=== PATIENT | female | born 1975 | race Caucasian/White ===

== ENCOUNTER 2018-11-09 19:41 | Observation (INO) ==
[2018-11-09 20:16] LABS: Microscopic, Urine URINE MICROSCOPIC (MICROSCOPIC)
[2018-11-09 20:25] LABS: Basophils # 0.1 K/mm3 (0-0.2); Basophils % 0.6 % (0.1-2.0); Eosinophils # 0.4 K/mm3 (0.0-0.4); Eosinophils % 3.9 % (0.1-12.0); Hematocrit 43.4 % (37.0-47.0); Lymphocytes # 3.6 K/mm3 (0.7-4.5); Lymphocytes % 33.9 % (10-50); Mean Corpuscular HGB Conc 32.2 g/dL (31.8-35.4); Mean Corpuscular Hemoglobin 28.7 pg (27.0-31.2); Mean Corpuscular Volume 89.2 fl (81-99); Mean Platelet Volume 7.2 fl (7.4-10.4); Monocytes # 0.5 K/mm3 (0.1-1.0); Monocytes % 5.1 % (1.7-9.3); Neutrophils % 56.4 % (37.0-80.0); Platelet Count 275 K/mm3 (142-424); Red Blood Count 4.86 M/mm3 (4.20-5.40); Red Cell Distribution Width 13.1 % (11.5-17.5); White Blood Count 10.6 K/mm3 (4.8-10.8)
[2018-11-09 20:27] LABS: Appearance,Urine CLEAR (Clear); Bilirubin,Urine Negative (Negative); Blood, Urine Negative (Negative); Color,Urine YELLOW (Yellow); Glucose,Urine (UA) Negative (Negative); Ketones,Urine Negative (Negative); Leukocyte Esterase,Urine Negative (Negative); Protein,Urine Negative (Negative); Specific Gravity, Urine <= 1.005 (1.005-1.030); Urobilinogen,Urine 0.2 EU/dl (0.2)
[2018-11-09 20:33] LABS: Bacteria,Urine Trace /lpf; WBC,Urine Occasional #/hpf (0-3)
[2018-11-09 20:34] LABS: Albumin Level 3.7 gm/dL (3.4-5.0); Albumin/Globulin Ratio 1.1 (1.1-1.8); Anion Gap 12.3 mEq/L (5-15); Bilirubin,Total 1.2 mg/dL (0.2-1.0); C-Reactive Protein 0.3 mg/L (0.0-0.9); Calcium 8.5 mg/dL (8.5-10.1); Globulin 3.4 gm/dl (1.3-3.2); Potassium 3.3 mmoL/L (3.5-5.1); Total Protein,Serum 7.1 gm/dL (6.4-8.2)
[2018-11-09 21:02] LABS: Erythrocyte Sedimentation Rate 14 mm/hr (0-20)
--- NOTE | 2018-11-09 21:57 | Emergency Department Note ---
ED Disposition Clinical Impression: Cholecystitis Disposition: Admitted as Observation Condition on Discharge: Good Instructions: DI for Acute Abdomen Referrals: Meseret Martinez MD [Primary Care Provider] - - Critical Care Critical Care Time: No Attestation: On 11/09/18, the high probability of a clinically significant, sudden or life threatening deterioration of the following system(s) required my full and direct attention, intervention and personal management. The time I documented below is in addition to time spent performing reported procedures but includes the f ollowing listed in this critical care notation. Medical Decision Making - Medical Records Medical records reviewed: Yes: I reviewed the patient's medical records. - Eduar Inquiry Pt receiving controlled substance: No Vital Signs: 11/09/18 19:49 11/09/18 20:18 11/09/18 21:17 Temperature 98.6 F 98.3 F Temperature Source Oral Oral Pulse Rate [Right Brachial] 97 H 80 87 Respiratory Rate 15 20 18 Blood Pressure [Right Arm] 111/76 102/56 L 104/59 L Blood Pressure Mean [Right Arm] 87 71 74 Blood Pressure Source [Right Arm] Automatic Cuff Automatic Cuff Blood Pressure Position [Right Arm] Supine Supine 02 Sat by Pulse Oximetry 96 94 L 95 Oxygen Delivery Method Room Air Room Air Room Air 11/09/18 21:47 11/09/18 22:13 Temperature Temperature Source Pulse Rate [Right Brachial] 81 82 Respiratory Rate 18 18 Blood Pressure [Right Arm] 99/58 L 105/63 L Blood Pressure Mean [Right Arm] 71 77 Blood Pressure Source [Right Arm] Automatic Cuff Automatic Cuff Blood Pressure Position [Right Arm] Supine Supine 02 Sat by Pulse Oximetry 95 95 Oxygen Delivery Method Room Air Room Air - Lab Data Lab results reviewed: Yes: I reviewed the patient's lab results. Lab Results 11/09/18 20:13: WBC 10.6, RBC 4.86, Hgb 14.0, Hct 43.4, MCV 89.2, MCH 28.7, MCHC 32.2, RDW 13.1, Plt Count 275, MPV 7.2 L, Neut % (Auto) 56.4, Lymph % (Auto) 33.9, [place] % (Auto) 5.1, Eos % (Auto) 3.9, Baso % (Auto) 0.6, Neut # (Auto) 6.0, Lymph # (Auto) 3.6, [place] # (Auto) 0.5, Eos # (Auto) 0.4, Baso # (Auto) 0.1, ESR 14 11/09/18 20:13: Sodium 144, Potassium 3.3 L, Chloride 107, Carbon Dioxide 28, Anion Gap 12.3, BUN 10, Creatinine 0.75, Estimated Creat Clear 133, Estimated GFR 85, Est GFR ( Amer) 103, Glucose 101, Calcium 8.5, Total Bilirubin 1.2 H, AST 19, ALT 32, Alkaline Phosphatase 88, C-Reactive Protein 0.3, Total Protein 7.1, Albumin 3.7, Globulin 3.4 H, Albumin/Globulin Ratio 1.1, Amylase 91, Lipase 164 11/09/18 20:13: Urine Color Yellow, Urine Appearance Clear, Urine pH 6.0, Ur Specific [place] <= 1.005, Urine Protein Negative, Urine Glucose (UA) Negative, Urine Ketones Negative, Urine Blood Negative, Urine Nitrate Negative, Urine Bilirubin Negative, Urine Urobilinogen 0.2, Ur Leukocyte Esterase Negative, Urine WBC Occasional, Urine Bacteria Trace Result diagrams: 11/09/18 20:13 11/09/18 20:13 Orders (Tests/Meds): ED MEDICATIONS Generic Name Dose Route Start Last Admin Trade Name Freq PRN Reason Stop Dose Admin Sodium Chloride 1,000 mls @ 999 mls/hr 11/09/18 20:00 11/09/18 20:09 Sod Chlor 0.9% 1000ml Bag IV 11/09/18 21:00 999 mls/hr .Q1H1M OLIVIER Administration Sodium Chloride 1,000 mls @ 999 mls/hr 11/09/18 21:30 11/09/18 21:31 Sod Chlor 0.9% 1000ml Bag IV 11/09/18 22:30 999 mls/hr .Q1H1M OLIVIER Administration Discontinued Medications Generic Name Dose Route Start Last Admin Trade Name Freq PRN Reason Stop Dose Admin Ioversol 75 ml 11/09/18 21:53 11/09/18 21:54 Rad-Optiray 350 100ml Vial IV 11/09/18 21:54 75 ml ONCE ONE Administration Protocol Ketorolac Tromethamine 30 mg 11/09/18 19:56 11/09/18 20:09 Toradol 30mg/Ml Vial IV 06/13/19 19:57 30 mg ONCE ONE Administration Morphine Sulfate 4 mg 11/09/18 22:00 11/09/18 22:01 Morphine 4mg/Ml Syringe IV 11/09/18 22:01 4 mg ONCE ONE Administration Ondansetron HCl 4 mg 11/09/18 19:56 11/09/18 20:09 Zofran 4mg/2ml Vial IV 11/09/18 19:57 4 mg ONCE ONE Administration Ondansetron HCl 4 mg 11/09/18 22:00 11/09/18 22:01 Zofran 4mg/2ml Vial IV 11/09/18 22:01 4 mg ONCE ONE Administration Sodium Chloride 10 ml 11/09/18 21:53 11/09/18 21:54 Rad-Saline Flush 10ml Syringe IV 11/09/18 21:54 10 ml ONCE ONE Administration ORDERS Category Date Time Status CT abdomen pelvis w con Stat Cat Scan 11/09/18 19:55 Taken Diarrhea 23 Panel, PCR Stat Lab 11/09/18 19:54 Ordered - CT Data CT Scan: Abdomen, Pelvis Time Received: 22:[address] Reviewed: Yes: I have viewed the radiologist's interpretation Preliminary Findings: Abnormal (gb changes ) - Physician Consults Physician Consulted: breana Reason -: Admission Nausea/Vomiting/Diarrhea HPI - General Chief complaint: Abdominal Pain Stated complaint: Right side pain Time Seen by Provider: 11/09/18 21:46 Mode of Arrival: Ambulatory Source of Information: Patient, Medical Record ( ) Limitations: No Limitations Description of Symptoms (Recalled from ER Triage Doc. by RN): Pt here with right sided abd pain, states it has been going on for 2 weeks, and has progressively gotten worse. Today she has associated nausea, does c/o diarrhea after every m eal. No c/o fevers. - History of Present Illness HPI Narrative: progressive rt upper abd pain with no fever but has n/v and presents as pain has sig increased MD complaint: nausea, vomiting, abdominal pain Onset (ago): day(s) Associated Abdominal Pain: Yes Location of pain: RUQ Severity: moderate Associated symptoms: denies other symptoms - Related Data Home Medications Medication Instructions Recorded Confirmed No Known Home Medications 11/09/18 11/09/18 Allergies Allergy/AdvReac Type Severity Reaction Status Date / Time hydrocodone [HYDROCODONE] Allergy Mild NA-NAUSEA/V Verified 11/09/18 20:08 OMITING [facility] History - Hepatitis A Screen Drug use history?: No High risk sexual behaviors?: No History of sexually transmitted infection?: No Currently employed?: No Childcare worker?: No Do you have indoor plumbing?: Yes Do you have electricity?: Yes Attestation statement:: This patient has been screened for Hepatitis A risk factors. I have reviewed the patient's past medical history: Yes Medical History: Denies:: Cancer, Diabetes Mellitus Type 1, Diabetes Mellitus Type 2, MRSA Laterality Cases: Bilateral: Tonsillectomy Amputation: No - Social History Smoking Status: Current every day smoker # Packs/Day (cigarettes): 1 Alcohol Intake: never Occupational Status: employed Housing: house - Psychiatric History Expresses thoughts of harming self/others: None Suicide Plan Description: No Plan ROS Obtained: Yes All systems reviewed & no additional complaints - Constitutional Constitutional: Denies fever(s) - Eyes Eyes: Denies change in vision - ENT Ears, Nose, Mouth, and Throat: Denies sore throat - Cardiovascular Cardiovascular: Denies chest pain - Respiratory Respiratory: No cough - Gastrointestinal Gastrointestingal: Reports: as per HPI, abdominal pain, nausea, vomiting. Denies: diarrhea - Genitourinary Female Genitourinary: Denies hematuria - Musculoskeletal Musculoskeletal: Denies joint pain - Integumentary/Breasts Skin/Breast: Denies rash - Neurologic Neurologic: Denies seizure-like activity Physical Exam - General General appearance: alert - Head Head exam: normocephalic - Eye Eye exam: Present: PERRL, EOMI. Absent: scleral icterus - ENT ENT exam: Present: mucous membranes dry - Neck Neck exam: Present: trachea midline - Respiratory Respiratory exam: Absent: respiratory distress - Cardiovascular Cardiovascular exam: Present: regular rate. Absent: systolic murmur - Abdominal Exam Abdominal exam: Present: soft, tenderness Abdominal tenderness: Present: RUQ, moderate - Extremities Exam Extremities exam: Present: full ROM - Neurological Exam Neurological exam: Present: alert, oriented X3, CN II-XII intact - Psychiatric Psychiatric exam: Present: normal affect - Skin Skin exam: Absent: rash
[2018-11-10 05:56] LABS: Basophils # 0.1 K/mm3 (0-0.2); Basophils % 0.6 % (0.1-2.0); Eosinophils # 0.5 K/mm3 (0.0-0.4); Hematocrit 38.2 % (37.0-47.0); Lymphocytes # 3.3 K/mm3 (0.7-4.5); Lymphocytes % 36.7 % (10-50); Mean Corpuscular HGB Conc 31.6 g/dL (31.8-35.4); Mean Corpuscular Hemoglobin 28.8 pg (27.0-31.2); Mean Corpuscular Volume 91.1 fl (81-99); Mean Platelet Volume 7.4 fl (7.4-10.4); Monocytes # 0.6 K/mm3 (0.1-1.0); Monocytes % 6.4 % (1.7-9.3); Neutrophils # 4.6 K/mm3 (1.8-7.8); Neutrophils % 51.2 % (37.0-80.0); Platelet Count 224 K/mm3 (142-424); Red Cell Distribution Width 13.2 % (11.5-17.5); White Blood Count 9.1 K/mm3 (4.8-10.8)
[2018-11-10 06:09] LABS: Hemoglobin 12.2 g/dL (12.2-16.2)
[2018-11-10 06:11] LABS: Anion Gap 8.1 mEq/L (5-15); Potassium 4.1 mmoL/L (3.5-5.1)
[2018-11-10 06:19] LABS: Calcium 7.6 mg/dL (8.5-10.1)
--- NOTE | 2018-11-10 08:20 | History & Physical Report ---
*Admission Date: 11/09/18 *Chief complaint: abdominal pain *History of present illness: Ms. Christianson is a 43-year-old female who presented to the emergency room with right-sided abdominal pain that has been ongoing for 2 weeks and progressively gotten worse. She began having nausea and diarrhea with every meal a few months ago. She though she just had a pulled muscle. She denies any fever. She was evaluated in the emergency room and found to have cholecystitis on CT scan. She was admitted and surgery was consulted. A right upper quadrant ultrasound was ordered as well. [facility] History I have reviewed the patient's past medical history: Yes Medical History: Reports:: Cancer (cervical cancer twice), Migraine Denies:: Diabetes Mellitus Type 1, Diabetes Mellitus Type 2, MRSA *Have you ever received a pneumonia vaccine?: No *Have you received a flu vaccine this season?: No Laterality Cases: Right: Arthroscopy Shoulder, Bilateral: Tonsillectomy Other Surgeries: Yes: Appendectomy, Dilation and Curettage, Hysterectomy- Partial, Tubal Ligation, Other (ovarian cyst removal x 6) Amputation: No Fractures: No - *Social History Smoking Status: Current every day smoker # Packs/Day (cigarettes): 2 Alcohol Intake: current Alcohol Intake Frequency:: holidays/special occasions only *Occupational Status:: employed Housing: house Household Members: spouse *Travel in the last 8 weeks: None - Psychiatric History Expresses thoughts of harming self/others: None Suicide Plan Description: No Plan Family Hx:: Adopted Review of Systems - Constitutional Denies chills, Denies weakness - Eyes Denies blurry vision, Denies double vision - ENT Denies nasal congestion, Denies sore throat - *Cardiovascular Denies chest pain, Denies rapid, pounding, or irregular heartbeat - *Respiratory Denies cough, Denies shortness of breath - *Gastrointestinal Reports abdominal pain (RUQ), Reports loose stools, Reports nausea, Denies vomiting - *Genitourinary Denies difficulty urinating, Denies painful urination - *Musculoskeletal Denies joint pain - *Neurologic Denies headache(s), Denies seizure-like activity, Denies dizziness, Denies weakness Meds Home Medications Medication Instructions Recorded Confirmed Type No Known Home Medications 11/09/18 11/09/18 History Allergies Allergy/AdvReac Type Severity Reaction Status Date / Time hydrocodone [HYDROCODONE] Allergy Mild NA-NAUSEA/V Verified 11/09/18 23:25 OMITING Exam Vital signs and Labs for Last 24 Hours: Temp Pulse Resp BP Pulse Ox 98.5 F 73 15 102/58 L 96 11/10/18 07:23 11/10/18 07:23 11/10/18 07:23 11/10/18 07:23 11/10/18 07:23 Laboratory Results - last 24 hr 11/09/18 20:13: WBC 10.6, RBC 4.86, Hgb 14.0, Hct 43.4, MCV 89.2, MCH 28.7, MCHC 32.2, RDW 13.1, Plt Count 275, MPV 7.2 L, Neut % (Auto) 56.4, Lymph % (Auto) 33.9, [place] % (Auto) 5.1, Eos % (Auto) 3.9, Baso % (Auto) 0.6, Neut # (Auto) 6.0, Lymph # (Auto) 3.6, [place] # (Auto) 0.5, Eos # (Auto) 0.4, Baso # (Auto) 0.1, ESR 14 11/09/18 20:13: Sodium 144, Potassium 3.3 L, Chloride 107, Carbon Dioxide 28, Anion Gap 12.3, BUN 10, Creatinine 0.75, Estimated Creat Clear 133, Estimated GFR 85, Est GFR ( Amer) 103, Glucose 101, Calcium 8.5, Total Bilirubin 1.2 H, AST 19, ALT 32, Alkaline Phosphatase 88, C-Reactive Protein 0.3, Total Protein 7.1, Albumin 3.7, Globulin 3.4 H, Albumin/Globulin Ratio 1.1, Amylase 91, Lipase 164 11/09/18 20:13: Urine Color Yellow, Urine Appearance Clear, Urine pH 6.0, Ur Specific [place] <= 1.005, Urine Protein Negative, Urine Glucose (UA) Negative, Urine Ketones Negative, Urine Blood Negative, Urine Nitrate Negative, Urine Bilirubin Negative, Urine Urobilinogen 0.2, Ur Leukocyte Esterase Negative, Urine WBC Occasional, Urine Bacteria Trace 11/10/18 05:47: WBC 9.1, RBC 4.20, Hgb 12.2 D, Hct 38.2, MCV 91.1, MCH 28.8, MCHC 31.6 L, RDW 13.2, Plt Count 224, MPV 7.4, Neut % (Auto) 51.2, Lymph % (Auto) 36.7, [place] % (Auto) 6.4, Eos % (Auto) 5.0, Baso % (Auto) 0.6, Neut # (Auto) 4.6, Lymph # (Auto) 3.3, [place] # (Auto) 0.6, Eos # (Auto) 0.5 H, Baso # (Auto) 0.1 11/10/18 05:47: Sodium 145, Potassium 4.1 D, Chloride 114 H, Carbon Dioxide 27, Anion Gap 8.1, BUN 10, Creatinine 0.79, Estimated Creat Clear 130, Estimated GFR 80, Est GFR ( Amer) 97, Glucose 99, Calcium 7.6 L D I & O for Last 24 hours: Intake & Output 11/07/18 11/08/18 11/09/18 11/10/18 11:59 11:59 11:59 11:59 Intake Total 2545 / 2545 Output Total 600 / 600 Balance 1944 / 194 Weight 195 lb 4 oz - Constitutional no acute distress - *Routine HEENT Exam Head: Present: normocephalic Eye: Present: EOMI, PERRL ENT: Present: mucous membranes moist - *Routine Neck Exam Present: supple. Absent: lymphadenopathy - *Routine Respiratory Exam Present: CTA bilaterally - *Routine Cardiovascular Exam Present: RRR - *Routine Abdominal Exam Present: soft, normoactive bowel sounds, tenderness (in the RUQ ) - *Routine Extremities Exam Absent: cyanosis, clubbing, edema - *Routine Skin Exam Present: warm. Absent: rash - *Routine Neurological Exam Present: alert, oriented X3 H&P: Result - Impressions CT abdomen/pelvis 1. Possible cholelithiasis with contracted gallbladder. Ultrasound may be of further value. 2. 3 cm left ovarian cyst. 3. 5 mm right upper lobe nodule nonspecific. Consider 6 month follow-up Assessment and Plan (1) Cholecystitis Current visit: Yes Status: Acute Category: Medical Code(s): K81.9 - Cholecystitis, unspecified - Assessment and plan all Dx Assessment and Plan for all problems:: Patient just had a right upper quadrant ultrasound. Awaiting results. Dr. Aviles has been consulted and will likely perform a cholecystectomy today.
--- NOTE | 2018-11-10 08:38 | Consult Report ---
*Admission Date: 11/09/18 *Reason for consult:: Cholecystitis *History of present illness: This is a 43-year-old female who is seen in consultation from her primary care provider after presenting to the emergency department overnight with increasing right sided abdominal pain with associated nausea/vomiting. She has had increasing symptomatology over the past few weeks and states that her symptoms are "worse with food intake". Please see HPI from an emergency department evaluation forwarded below. Nausea/Vomiting/Diarrhea HPI - General Chief complaint: Abdominal Pain Stated complaint: Right side pain Time Seen by Provider: 11/09/18 21:46 Mode of Arrival: Ambulatory Source of Information: Patient, Medical Record ( ) Limitations: No Limitations Description of Symptoms (Recalled from ER Triage Doc. by RN): Pt here with right sided abd pain, states it has been going on for 2 weeks, and has progressively gotten worse. Today she has associated nausea, does c/o diarrhea after every meal. No c/o fevers. - History of Present Illness HPI Narrative: progressive rt upper abd pain with no fever but has n/v and presents as pain has sig increased MD complaint: nausea, vomiting, abdominal pain Onset (ago): day(s) Associated Abdominal Pain: Yes Location of pain: RUQ Severity: moderate Associated symptoms: denies other symptoms Review of Systems - Constitutional Denies chills - Eyes Denies change in vision - ENT Denies difficulty swallowing - *Cardiovascular Denies chest pain - *Respiratory Denies cough - *Gastrointestinal Reports abdominal pain, Reports loose stools, Reports nausea, Reports vomiting - *Genitourinary Denies abnormal vaginal bleeding - *Musculoskeletal Denies abnormal walking - Integumentary/Breasts Denies bleeding lesions - *Neurologic Denies abnormal movements, Denies seizure-like activity - Psychiatric Denies anxiety - Endocrine Denies cold intolerance - Hematologic/Lymphatic Denies easy bleeding - Allergic/Immunologic Denies hives [facility] History Medical History: Reports:: Cancer (cervical cancer twice) Denies:: Diabetes Mellitus Type 1, Diabetes Mellitus Type 2, MRSA *Have you ever received a pneumonia vaccine?: No *Have you received a flu vaccine this season?: No Laterality Cases: Right: Arthroscopy Shoulder, Bilateral: Tonsillectomy Other Surgeries: Yes: Appendectomy, Hysterectomy-Partial Amputation: No Fractures: No - *Social History Smoking Status: Current every day smoker # Packs/Day (cigarettes): 2 Alcohol Intake: current Alcohol Intake Frequency:: holidays/special occasions only *Occupational Status:: employed Housing: house Household Members: spouse *Travel in the last 8 weeks: None - Psychiatric History Expresses thoughts of harming self/others: None Suicide Plan Description: No Plan Family Hx:: Adopted Meds Home Medications Medication Instructions Recorded Confirmed Type No Known Home Medications 11/09/18 11/09/18 History Allergies Allergy/AdvReac Type Severity Reaction Status Date / Time hydrocodone [HYDROCODONE] Allergy Mild NA-NAUSEA/V Verified 11/09/18 23:25 OMITING Exam Vital signs and Labs for Last 24 Hours: Temp Pulse Resp BP Pulse Ox 98.5 F 73 15 102/58 L 96 11/10/18 07:23 11/10/18 07:23 11/10/18 07:23 11/10/18 07:23 11/10/18 07:23 Laboratory Results - last 24 hr 11/09/18 20:13: WBC 10.6, RBC 4.86, Hgb 14.0, Hct 43.4, MCV 89.2, MCH 28.7, MCHC 32.2, RDW 13.1, Plt Count 275, MPV 7.2 L, Neut % (Auto) 56.4, Lymph % (Auto) 33.9, [place] % (Auto) 5.1, Eos % (Auto) 3.9, Baso % (Auto) 0.6, Neut # (Auto) 6.0, Lymph # (Auto) 3.6, [place] # (Auto) 0.5, Eos # (Auto) 0.4, Baso # (Auto) 0.1, ESR 14 11/09/18 20:13: Sodium 144, Potassium 3.3 L, Chloride 107, Carbon Dioxide 28, Anion Gap 12.3, BUN 10, Creatinine 0.75, Estimated Creat Clear 133, Estimated GFR 85, Est GFR ( Amer) 103, Glucose 101, Calcium 8.5, Total Bilirubin 1.2 H, AST 19, ALT 32, Alkaline Phosphatase 88, C-Reactive Protein 0.3, Total Protein 7.1, Albumin 3.7, Globulin 3.4 H, Albumin/Globulin Ratio 1.1, Amylase 91, Lipase 164 11/09/18 20:13: Urine Color Yellow, Urine Appearance Clear, Urine pH 6.0, Ur Specific [place] <= 1.005, Urine Protein Negative, Urine Glucose (UA) Negative, Urine Ketones Negative, Urine Blood Negative, Urine Nitrate Negative, Urine Bilirubin Negative, Urine Urobilinogen 0.2, Ur Leukocyte Esterase Negative, Urine WBC Occasional, Urine Bacteria Trace 11/10/18 05:47: WBC 9.1, RBC 4.20, Hgb 12.2 D, Hct 38.2, MCV 91.1, MCH 28.8, MCHC 31.6 L, RDW 13.2, Plt Count 224, MPV 7.4, Neut % (Auto) 51.2, Lymph % (Auto) 36.7, [place] % (Auto) 6.4, Eos % (Auto) 5.0, Baso % (Auto) 0.6, Neut # (Auto) 4.6, Lymph # (Auto) 3.3, [place] # (Auto) 0.6, Eos # (Auto) 0.5 H, Baso # (Auto) 0.1 11/10/18 05:47: Sodium 145, Potassium 4.1 D, Chloride 114 H, Carbon Dioxide 27, Anion Gap 8.1, BUN 10, Creatinine 0.79, Estimated Creat Clear 130, Estimated GFR 80, Est GFR ( Amer) 97, Glucose 99, Calcium 7.6 L D I & O for Last 24 hours: Intake & Output 11/07/18 11/08/18 11/09/18 11/10/18 11:59 11:59 11:59 11:59 Intake Total 2545 / 2545 Output Total 600 / 600 Balance 1944 / 1944 Weight 195 lb 4 oz - Constitutional no acute distress - *Routine HEENT Exam Head: Present: normocephalic, atraumatic - *Routine Respiratory Exam Absent: respiratory distress - *Routine Cardiovascular Exam Present: RRR - *Routine Abdominal Exam Present: soft, tenderness - *Routine Skin Exam Present: intact - Routine Psychiatric Exam Present: normal affect Results - Labs 11/10/18 05:47 11/10/18 05:47 Laboratory Results - last 24 hr 11/09/18 20:13: WBC 10.6, RBC 4.86, Hgb 14.0, Hct 43.4, MCV 89.2, MCH 28.7, MCHC 32.2, RDW 13.1, Plt Count 275, MPV 7.2 L, Neut % (Auto) 56.4, Lymph % (Auto) 33.9, [place] % (Auto) 5.1, Eos % (Auto) 3.9, Baso % (Auto) 0.6, Neut # (Auto) 6.0, Lymph # (Auto) 3.6, [place] # (Auto) 0.5, Eos # (Auto) 0.4, Baso # (Auto) 0.1, ESR 14 11/09/18 20:13: Sodium 144, Potassium 3.3 L, Chloride 107, Carbon Dioxide 28, Anion Gap 12.3, BUN 10, Creatinine 0.75, Estimated Creat Clear 133, Estimated GFR 85, Est GFR ( Amer) 103, Glucose 101, Calcium 8.5, Total Bilirubin 1.2 H, AST 19, ALT 32, Alkaline Phosphatase 88, C-Reactive Protein 0.3, Total Protein 7.1, Albumin 3.7, Globulin 3.4 H, Albumin/Globulin Ratio 1.1, Amylase 91, Lipase 164 11/09/18 20:13: Urine Color Yellow, Urine Appearance Clear, Urine pH 6.0, Ur Specific [place] <= 1.005, Urine Protein Negative, Urine Glucose (UA) Negative, Urine Ketones Negative, Urine Blood Negative, Urine Nitrate Negative, Urine Bilirubin Negative, Urine Urobilinogen 0.2, Ur Leukocyte Esterase Negative, Urine WBC Occasional, Urine Bacteria Trace 11/10/18 05:47: WBC 9.1, RBC 4.20, Hgb 12.2 D, Hct 38.2, MCV 91.1, MCH 28.8, MCHC 31.6 L, RDW 13.2, Plt Count 224, MPV 7.4, Neut % (Auto) 51.2, Lymph % (Auto) 36.7, [place] % (Auto) 6.4, Eos % (Auto) 5.0, Baso % (Auto) 0.6, Neut # (Auto) 4.6, Lymph # (Auto) 3.3, [place] # (Auto) 0.6, Eos # (Auto) 0.5 H, Baso # (Auto) 0.1 11/10/18 05:47: Sodium 145, Potassium 4.1 D, Chloride 114 H, Carbon Dioxide 27, Anion Gap 8.1, BUN 10, Creatinine 0.79, Estimated Creat Clear 130, Estimated GFR 80, Est GFR ( Amer) 97, Glucose 99, Calcium 7.6 L D - Imaging CT scan - abdomen: report reviewed, image reviewed CT scan - pelvis: report reviewed, image reviewed US - abdomen: report reviewed, image reviewed Assessment and Plan (1) Cholecystitis Current visit: Yes Status: Acute Category: Medical Code(s): K81.9 - Cholecystitis, unspecified She is scheduled for laparoscopic cholecystectomy this morning. I have discussed the risks and benefits including, but not limited to: Bleeding Infection Damage to surrounding tissue Inherent risks of sedation The patient agrees to proceed.
--- NOTE | 2018-11-10 09:20 | Pharmacy Consult Notes ---
[facility] Pharmacy VTE Monitoring - Patient Demographics Admission date: 11/09/18 Report Date: 11/10/18 Time: 09:20 Allergies/Adverse Reactions: Patient Allergies hydrocodone [HYDROCODONE] Allergy (Mild, Verified 11/09/18 23:25) NA-NAUSEA/VOMITING Height: 1.73 m Weight: 88.564 kg Patient Problems: Current Active Problems (Updated 11/09/18 @ 22:29 by Luis Gaona MD) Cholecystitis (Acute) - VTE Risk Labs: VTE Related Lab Results Hgb 12.2 g/dL (12.2-16.2) D 11/10/18 05:47 Hct 38.2 % (37.0-47.0) 11/10/18 05:47 Plt Count 224 K/mm3 (142-424) 11/10/18 05:47 BUN 10 mg/dL (7-18) 11/10/18 05:47 Creatinine 0.79 mg/dL (0.55-1.02) 11/10/18 05:47 Estimated Creat Clear 130 mL/min (50-200) 11/10/18 05:47 Was VTE Risk Assessment Performed: Yes VTE Score: 3 VTE Risk Level: Low Risk - Prophylaxis VTE Prophylaxis Ordered?: Yes Types of VTE Prophylaxis: TEDS Knee High Location of Applied Device: Bilateral Lower Extremeties - VTE Diagnosis Confirmed Treatment or plan recommended: Continue Current Treatment
--- NOTE | 2018-11-10 11:07 | Operative Note ---
Date of procedure: 11/10/18 Pre-op Diagnosis:: Acute cholecystitis Post-op Diagnosis:: Same Procedure performed:: Laparoscopic cholecystectomy Surgeon:: Phan Aviles MD MERCHANDISING MANAGER:: Enrique Major Anesthesia: GETA Estimated blood loss (mL): 10 Operative findings:: Significant pericholecystic fat stranding Distention of gallbladder with wall thickening Thickening of tissue around infundibulum with changes consistent with acute inflammation Operative note:: After informed consent was obtained, the patient was taken to the operating room and placed in the supine position. General anesthesia was induced and the abdomen was prepped and draped in a sterile fashion. After infiltration with local anesthetic an infraumbilical incision was made. A Veress needle was placed in position. The abdomen was insufflated. A 5 mm optical trocar was placed in position. Under direct visualization, a 12 mm trocar was placed in the subxiphoid position and 2 additional 5 mm trocars were placed in the right upper quadrant. The gallbladder was elevated up and over the liver margin. Significant fat stranding was noted. Careful dissection bluntly and with harmonic wandy was utilized to free this tissue as the gallbladder was more thoroughly elevated and maneuvered cephalad. The tissue around the cystic duct was carefully dissected. This tissue was very thickened and dissection was difficult. 3 clips were placed proximally and the duct was transected with harmonic wandy. The tissue around the cystic artery was carefully dissected and a clip was placed proximally. The duct was transected with harmonic wandy distally. Harmonic wandy were then utilized to dissect the gallbladder away from the liver margin. The gallbladder was placed in a retrieval bag and removed through the subxiphoid trocar site. The right upper quadrant was thoroughly irrigated. No active bleeding or bile leak was noted. Fascia at the subxiphoid trocar site was reapproximated utilizing 0 Ethibond. The remaining trocars were removed. All wounds were irrigated and skin was closed with 4-0 Monocryl in a subcuticular fashion. Steri-Strips were applied. The patient's anesthetic agents were reversed and extubation was completed prior to transfer to recovery in stable condition. Condition: stable Disposition: PACU Specimens:: Gallbladder and contents Complications:: No immediate
--- NOTE | 2018-11-10 11:08 | Progress Note ---
[facility] Anesthesia Checklist - Structural Data Admitted From: Inpatient Planned Operative Procedure/s: orquidea hernandez Consent for Planned Operative Procedure(s) Verified: Yes - Airway Assessment C-Spine Mobility Assessed: Yes TMJ Mobility Assessed: Yes Dentition: Good Dentition - Neurological Assessment Level of Consciousness: Awake, Alert, Appropriate - Anesthesia Plan Anesthesia Risk discussed: Yes Anesthesia Plan: Verified ASA Class: II Anesthesia Type: General [facility] History I have reviewed the patient's past medical history: Yes Medical History: Reports:: Cancer (cervical cancer twice), Migraine Denies:: Diabetes Mellitus Type 1, Diabetes Mellitus Type 2, MRSA *Have you ever received a pneumonia vaccine?: No *Have you received a flu vaccine this season?: No Laterality Cases: Right: Arthroscopy Shoulder, Bilateral: Tonsillectomy Other Surgeries: Yes: Appendectomy, Dilation and Curettage, Hysterectomy- Partial, Tubal Ligation, Other (ovarian cyst removal x 6) Amputation: No Fractures: No - *Social History Smoking Status: Current every day smoker # Packs/Day (cigarettes): 2 Alcohol Intake: current Alcohol Intake Frequency:: holidays/special occasions only *Occupational Status:: employed Housing: house Household Members: spouse *Travel in the last 8 weeks: None - Psychiatric History Expresses thoughts of harming self/others: None Suicide Plan Description: No Plan Family Hx:: Adopted
--- NOTE | 2018-11-10 11:09 | Progress Note ---
[facility] Anesthesia Record Part I Intake, IV Amount: 1,000 Estimated blood loss (mL): 0 Urine output (mL): 0 Blood Pressure: 129/55 SaO2: 100 Pulse Rate: 80 Respiratory Rate: 12 Temperature: 98 F Patient is:: Awake, Stable Stable to PACU at:: 11:05
--- NOTE | 2018-11-10 11:10 | Progress Note ---
[facility] Anesthesia Record Part II Discharge Time: 11:35 Destination: floor PACU nurse assessment reviewed?: Yes Patient Condition:: Good Anesthesia Complications:: None Swallowing reflex intact?: Yes Cyanosis?: No
--- NOTE | 2018-11-13 11:01 | Discharge Summary ---
General - General Admission date:: 11/09/18 Discharge date: 11/10/18 HPI HPI: Ms. Christianson is a 43-year-old female who presented to the emergency room with right-sided abdominal pain that has been ongoing for 2 weeks and progressively gotten worse. She began having nausea and diarrhea with every meal a few months ago. She though she just had a pulled muscle. She denies any fever. She was evaluated in the emergency room and found to have cholecystitis on CT scan. She was admitted and surgery was consulted. A right upper quadrant ultrasound was ordered as well. Hospital Course Hospital Course: The patient was started on pain medication and surgery was consulted. Her gallbladder ultrasound was normal despite her CT scan findings. Dr. Aviles felt she would need laparoscopic cholecystectomy based on her CT scan. He performed this on 11/10/2018 and found significant pericholecystic fat stranding and distention of the gallbladder with wall thickening. There was also thickening of the tissue around the infundibulum with changes consistent with acute inflammation. The patient tolerated the procedure well. She was able to tolerate a diet and was stable to be discharged home with close outpatient follow-up. Objective Vital signs: Temp Pulse Resp BP Pulse Ox 98.1 F 69 20 115/73 95 11/10/18 18:30 11/10/18 18:30 11/10/18 18:30 11/10/18 18:30 11/10/18 18:30 Narrative: - Constitutional no acute distress - *Routine HEENT Exam Head: Present: normocephalic Eye: Present: EOMI, PERRL ENT: Present: mucous membranes moist - *Routine Neck Exam Present: supple. Absent: lymphadenopathy - *Routine Respiratory Exam Present: CTA bilaterally - *Routine Cardiovascular Exam Present: RRR - *Routine Abdominal Exam Present: soft, normoactive bowel sounds, tenderness (in the RUQ ) - *Routine Extremities Exam Absent: cyanosis, clubbing, edema - *Routine Skin Exam Present: warm. Absent: rash - *Routine Neurological Exam Present: alert, oriented X3 DS: Diagnosis - Discharge Diagnosis (1) Cholecystitis Status: Acute (2) Status post laparoscopic cholecystectomy Status: Acute Discharge Plan - Patient Discharge Instructions ACTIVITY: Limited activity DIET: low fat, low cholesterol Additional Instructions: Please call and make a follow up appointment with Dr. Aviles for one week from today. Patient Instructions: DI for Cholecystectomy, DI for Surgical Site Infection, DI for Cholecystitis - Follow up Plan Follow up with: Phan Aviles MD [Staff Physician] - (1-2 weeks) Unknown provider or service follow up:: 11/10/18 18:18 [facility] in 2 weeks. Disposition: Home, Self-Halfway Medications: Home Medications Medication Instructions Recorded Confirmed Type Oxycodone HCl/Acetaminophen 1 tab PO Q6H PRN #23 tab 11/10/18 Rx [Percocet 5/325mg tablet] Prescriptions/Medication Reconciliation: New Oxycodone HCl/Acetaminophen [Percocet 5/325mg tablet] 1 tab PO Q6H PRN #23 tab PRN Reason: Moderate Pain
== END 2018-11-10 19:09 | disposition home or self-care (01) ==
LOC: ER 19:41 → 2ND 19:41
PROVIDERS: ADMIT Family Medicine; ATTEND Family Medicine
DX: Z85.41 Personal history of malignant neoplasm of cervix uteri; Z88.6 Allergy status to analgesic agent; K81.0 Acute cholecystitis
CPT/HCPCS: 36415; 74177; 76705; 80048; 80053; 81001; 82150; 83690; 85025; 85651; 86140; 96365; 96366; 96367; 96375; 96376; 99284; G0378; J1335; J2405; J2710; Q9967

== ENCOUNTER 2020-03-29 17:24 | Emergency (ER) | payer BC, SELFPAY ==
[2020-03-29 17:32] VITALS: BP 124/76; PULSE 80; RESP 18; TEMP 36.6; O2SAT 97; BMI 29.6
--- NOTE | 2020-03-29 17:37 | HMH.EDUTC ---
[facility] [place] Disposition Clinical Impression: URI (upper respiratory infection) Qualifiers: URI type: unspecified URI Qualified Code(s): J06.9 - Acute upper respiratory infection, unspecified Disposition: Home, Self-Care Condition on Discharge: Good Instructions: Sore Throat, DI for Sinusitis, Sinusitis, Azithromycin, Methylprednisolone Additional Instructions: *Monitor Temp, Over the counter Motrin or Tylenol as directed/as needed Tylenol every 4 hours and Motrin every 6 hours (as long as your family doctor has told you that you can take it) for fever or pain. and straight to ER if unable to lower temp less than 101.0 after medication given *Warm salt water gargles may help to soothe the throat *Throat Lozenges *Warm fluids like tea with honey may help to soothe the throat *Sleep elevated *Humidifier/Vaporizer *Flonase 2 sprays in each nostril daily but be aware that it may take 2-3 days before you notice improvement Your throat swab was sent for culture. Those results are typically sent to your primary care. Be sure to follow up in 2-3 days with your family doctor/primary care physician if no improvement so they can review those result and treat if necessary. If you don?t have a primary care doctor, I recommend you get one but in the mean time, you will have to return to a walk in clinic Follow up IMMEDIATELY for new or worsening symptoms or no Noticeable improvement over the next 48-72 hours. 911 for difficulty breathing or swallowing You was tested for today for COVID19 your test result should be back later this evening, you may call back later this evening to see if your test results are back and the result You was given a handout with instructions for Self Quarantine and Self isolation for while you wait on test results and what to do if they are positive Prescriptions: Fluticasone Propionate [Flonase 50mcg nasal spray 16gm] 1 spr NS DAILY #1 bottle Transmission Status: [facility] methylPREDNISolone [Medrol 4mg tab] 4 mg PO DIRECTED #21 tab Transmission Status: [facility] Azithromycin [Z-Musa 250mg Tab] 250 mg PO DIRECTED #6 tab Transmission Status: [facility] Referrals: Meseret Martinez MD [Primary Care Provider] - As needed Time of Disposition: 17:51 Medical Decision Making - Eduar Inquiry Pt receiving controlled substance: No Eduar was queried for this patient: No Vital Signs: 03/29/20 17:32 Temperature 97.9 F Temperature Source Oral Pulse Rate [Radial] 80 Respiratory Rate 18 Blood Pressure [Right Arm] 124/76 Blood Pressure Mean [Right Arm] 92 Blood Pressure Source [Right Arm] Automatic Cuff Blood Pressure Position [Right Arm] Sitting 02 Sat by Pulse Oximetry 97 Oxygen Delivery Method Room Air - Lab Data Lab results reviewed: Yes: I reviewed the patient's lab results. Orders (Tests/Meds): ORDERS Category Date Time Status Covid-19 Nasal PCR ([facility]) Routine Lab 03/29/20 17:31 Received [facility] HPI - General Stated complaint: Body aches, cough Time Seen by Provider: 03/29/20 17:37 Mode of Arrival: Ambulatory Source of Information: Patient Limitations: No Limitations Description of Symptoms (Recalled from Triage Doc. by RN): States she is weak, cough, diarrhea. Exposed to COVID last week. HEENT Symptoms (Recalled from RN notes): Yes Resp Symptoms (Recalled from RN notes): No Skin Symptoms (Recalled from RN notes): No MS Symptoms (Recalled from RN notes): No Functional Status (Recalled from RN notes): wnl - History of Present Illness Provider Complaint: Patient states that she was around someone that was positive for COVID last week States that now she is having sinus pain and congestion, sore throat body aches and chills States that she come in today to get checked to see if she had COVID or may have strep or flu - Related Data Previous Rx's Medication Instructions Recorded Albuterol Sulfate [Albuterol HFA
[2020-03-29 17:56] VITALS: BP 124/76; PULSE 80; RESP 18; TEMP 36.6; O2SAT 97
[2020-03-29 20:22] LABS: UTC Strep Screen (Rapid) Negative (Negative)
== END 2020-03-29 17:59 | disposition home or self-care (01) ==
PROVIDERS: Emergency Provider Nurse Practitioner; PCP Family Medicine
DX: J06.9 Acute upper respiratory infection, unspecified (principal); Z20.828 Contact with and (suspected) exposure to other viral communicable diseases; G43.709 Chronic migraine without aura, not intractable, without status migrainosus; F17.210 Nicotine dependence, cigarettes, uncomplicated
CPT/HCPCS: 87880; 99202; U0003

== ENCOUNTER 2020-12-26 16:00 | Outpatient (RCR) | payer OTHER, SELFPAY | END 2020-12-26 16:05 | disposition home or self-care (01) | LOC: PT 16:00 | PROVIDERS: Visit Provider Family Medicine | DX: M25.512 Pain in left shoulder (principal) | CPT/HCPCS: 97010; 97014; 97016; 97033; 97035; 97110; 97140; 97163; G0283 ==

== ENCOUNTER → 2021-02-25 14:40 | Outpatient (CLI) | payer BC, SELFPAY | PROVIDERS: PCP Family Medicine; Visit Provider Nurse Practitioner | DX: Z20.822 Contact with and (suspected) exposure to COVID-19 (principal) | CPT/HCPCS: C9803; U0003; U0005 ==

== ENCOUNTER → 2021-03-02 13:52 | Outpatient (CLI) | payer BC, SELFPAY | PROVIDERS: PCP Family Medicine; Visit Provider Nurse Practitioner | DX: Z20.822 Contact with and (suspected) exposure to COVID-19 (principal) | CPT/HCPCS: C9803; U0003; U0005 ==

== ENCOUNTER 2021-04-10 15:00 | Outpatient (RCR) | payer OTHER, SELFPAY | END 2021-04-10 15:05 | disposition home or self-care (01) | LOC: OT 15:00 | PROVIDERS: Visit Provider Orthopaedic Surgery | DX: M75.02 Adhesive capsulitis of left shoulder (principal) | CPT/HCPCS: 97014; 97035; 97110; 97140; 97164; 97165; 97530; G0283 ==

== ENCOUNTER → 2021-04-14 19:53 | Outpatient (CLI) | payer BC, SELFPAY | PROVIDERS: Visit Provider Nurse Practitioner Family | DX: Z20.822 Contact with and (suspected) exposure to COVID-19 (principal); J20.9 Acute bronchitis, unspecified; R05.9 Cough, unspecified; Z90.49 Acquired absence of other specified parts of digestive tract | CPT/HCPCS: C9803; U0003; U0005 ==

== ENCOUNTER 2021-05-30 19:12 | Emergency (ER) | payer BC, SELFPAY ==
[2021-05-30 20:00] VITALS: BP 122/77; PULSE 86; RESP 20; TEMP 36.8; O2SAT 97; BMI 29.6
--- NOTE | 2021-05-30 20:37 | HMH.EDUTC ---
[facility] [place] Disposition Clinical Impression: Acute bronchitis Qualifiers: Bronchitis organism: unspecified organism Qualified Code(s): J20.9 - Acute bronchitis, unspecified Disposition: Home, Self-Care Condition on Discharge: Good Instructions: Acute Bronchitis, DI for Acute Bronchitis Additional Instructions: Drink plenty of fluids. Take tylenol or ibuprofen for pain or fever. Take the medications as directed. Follow up with your regular doctor. GO TO THE ER FOR ANY WORSENING SYMPTOMS Quarantine until you know the results of your covid-19 test. If it is positive, the health department should call you and give you further instructions about your length of Quarantine and other things. Notify your school or workplace of your results and follow their instructions regarding return to work/school. Don't start the oral steroids until tomorrow, since you had the shot here today. The cough medication (promethazine dm) will make you drowsy, so don't drive or operate heavy machinery after taking it. Prescriptions: Albuterol Sulfate [Albuterol Sulfate Hfa] 2 puffs IH Q6HP PRN 30 Days #1 each PRN Reason: Shortness Of Breath Transmission Status: Received by [facility] Promethazine/Dextromethorphan [Promethazine-Dm Syrup] 5 ml PO Q6HP PRN #240 ml PRN Reason: Cough Transmission Status: Received by [facility] Amoxicillin/Potassium Clav [Augmentin 875-125 Tablet] 1 tab PO Q12H 10 Days #20 tab Transmission Status: Received by [facility] methylPREDNISolone [Medrol] 4 mg PO DIRECTED 6 Days #21 packet Transmission Status: Received by [facility] Referrals: Anil Zuñiga MD [Primary Care Provider] - Time of Disposition: 21:19 Medical Decision Making - Medical Records Medical records reviewed: No: I reviewed the patient's medical records. - Eduar Inquiry Pt receiving controlled substance: No Vital Signs: 05/30/21 20:00 05/30/21 20:55 Temperature 98.2 F 98.2 F Temperature Source Oral Pulse Rate 86 Pulse Rate [Left] 86 Respiratory Rate 20 20 Blood Pressure 122/77 Blood Pressure [Right Arm] 122/77 Blood Pressure Mean [Right Arm] 92 02 Sat by Pulse Oximetry 97 Orders (Tests/Meds): ED MEDICATIONS Discontinued Medications Generic Name Dose Route Start Last Admin Trade Name Jero PRN Reason Stop Dose Admin Ceftriaxone Sodium 1 gm 05/30/21 20:45 05/30/21 20:54 Ceftriaxone 1gm Vial IM 05/30/21 20:46 1 gm ONCE ONE Administration Lidocaine HCl 0 ml 05/30/21 20:45 05/30/21 20:54 Lidocaine 1% 5ml Pf Vial IM 05/30/21 20:46 2 ml ONCE ONE Administration Methylprednisolone Sodium Succinate 125 mg 05/30/21 20:45 05/30/21 20:54 Methylprednisolone Sod Succ 125mg Vial IM 05/30/21 20:46 125 mg ONCE ONE Administration ORDERS Category Date Time Status Covid-19 Nasal PCR ([facility]) Routine Lab 05/30/21 20:57 Received [facility] [place] HPI - General Stated complaint: congestion,cough Time Seen by Provider: 05/30/21 20:37 Mode of Arrival: Ambulatory Source of Information: Patient Limitations: No Limitations Description of Symptoms (Recalled from Triage Doc. by RN): pt c/o a cough, congestion, and SOA with ambulation. x5 days HEENT Symptoms (Recalled from RN notes): Yes Resp Symptoms (Recalled from RN notes): Yes Skin Symptoms (Recalled from RN notes): No MS Symptoms (Recalled from RN notes): No Functional Status (Recalled from RN notes): wnl - History of Present Illness Provider Complaint: For the past 5 days she has had chest congestion, productive cough with greenish sputum, fever up to 102, and wheezing. She denies any history of asthma or copd. - Related Data Previous Rx's Medication Instructions Recorded amoxicillin 500 mg capsule 500 mg PO Q12H 10 Days #20 cap 04/14/21 Albuterol Sulfate [Albuterol 2 puffs IH Q6HP PRN 30 Days #1 each 05/30/21 Sulfate Hfa] Amoxicillin/Potassium Clav 1 tab PO Q12H 10 Days #
[2021-05-30 20:55] VITALS: BP 122/77; PULSE 86; RESP 20; TEMP 36.8
== END 2021-05-30 21:25 | disposition home or self-care (01) ==
PROVIDERS: Emergency Provider Nurse Practitioner Family; PCP Family Medicine
DX: J20.9 Acute bronchitis, unspecified (principal); Z20.822 Contact with and (suspected) exposure to COVID-19
CPT/HCPCS: 96372; 99202; C9803; G0463; J0696; U0003; U0005

== ENCOUNTER 2022-01-29 15:36 | Emergency (ER) | payer BC, SELFPAY ==
[2022-01-29] VITALS (7 sets, daily range): BP systolic 108–130; BP diastolic 75–90; PULSE 74–81; RESP 16–18; TEMP 36.7–36.9; O2SAT 95–99; BMI 29.7
--- NOTE | 2022-01-29 17:05 | EXP.UTC ---
Discharge Plan Disposition Patient Disposition: Still a Patient Condition: Fair Prescriptions Prescriptions: No Action amoxicillin 500 mg capsule 500 mg PO Q12H 10 Days Qty: 20 0RF promethazine-DM 120 ML syrup 5 ml PO Q6HP PRN (Reason: Cough) Qty: 240 0RF methylprednisolone 4 MG tablets,dose pack 4 mg PO DIRECTED 6 Days Qty: 21 0RF albuterol sulfate 8.5 GM HFA aerosol inhaler 2 puffs IH Q6HP PRN (Reason: Shortness Of Breath) 30 Days Qty: 1 5RF amoxicillin-pot clavulanate 1 EACH tablet 1 tab PO Q12H 10 Days Qty: 20 0RF Referrals Follow up/Referrals: Anil Zuñiga MD [Primary Care Provider] - See instructions Clinical Impressions Clinical Impression: Chest pain Discharge ED Provider: Francisca Walker [facility] General Stated complaint: Pain under left breast X1 week ? pulled muscle Mode of Arrival: Ambulatory Source of Information: Patient Limitations: No Limitations Time Seen by Provider: 01/29/22 17:05 Description of Symptoms (Recalled from Triage Doc. 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 State that she felt like she had indigestion States that since then she has continued to have pain in the left side of her chest under her breast and it comes up beside left breast in her chest States that nothing she has done has made it better Denies injury Denies worsening of pain with movement States that it just hurts States that today she was still having pain and belching alot today so she came in to get checked out Related Data Previous Rx's Medication Instructions Recorded amoxicillin 500 mg capsule 500 mg PO Q12H strep 10 days #20 04/14/21 caps albuterol sulfate 90 mcg/actuation 2 puffs IH Q6HP PRN Shortness Of 05/30/21 aerosol inhaler Breath 30 days #1 ea amoxicillin 875 mg-potassium 1 tab PO Q12H 10 days #20 tabs 05/30/21 clavulanate 125 mg tablet methylprednisolone 4 mg tablets in 4 mg PO DIRECTED 6 days #21 05/30/21 a dose pack packets promethazine-DM 6.25 mg-15 mg/5 mL 5 ml PO Q6HP PRN Cough #240 mL 05/30/21 oral syrup Allergies Allergy/AdvReac Type Severity Reaction Status Date / Time hydrocodone [HYDROCODONE] Allergy Mild NA-NAUSEA/V Verified 04/14/21 13:25 OMITING Worker's Comp Is this a Worker's Comp case?: No PFSH PFSH Medical History (Updated 01/29/22 @ 17:19 by Francisca Walker APRN) Cancer Migraine Surgical History (Updated 01/29/22 @ 17:03 by Isabel Hassan RN) History of appendectomy History of cholecystectomy History of hysterectomy History of repair of rotator cuff History of tonsillectomy Social History (Updated 01/29/22 @ 17:04 by Isabel Hassan RN) Smoking Status: Current every day smoker tobacco type: cigarettes packs per day: 1 second hand exposure: Yes alcohol intake: never current occupational status: employed Travel in the last 8 weeks: None household members: spouse housing: house caffeine: Yes (2 pots a day) ROS Obtained: Yes All systems reviewed & no additional complaints except as documented and Yes Systems reviewed as appropriate & no additional complaints except as documented ENT Ears, Nose, Mouth, and Throat: Reports system reviewed and no additional complaints, except as documented and Reports as per HPI Cardiovascular Cardiovascular: Reports system reviewed and no additional complaints, except as documented, Reports as per HPI and Reports chest pain (Pain in left side of chest below left breast that has continued to get wors
--- NOTE | 2022-01-29 17:31 | ECG_ITS ---
APPROVED REPORT Exam: Resting ECG HR:75 bpm ECG Measurements Heart Rate 75 AXES SC 125 P 60 QRSd 77 QRS 22 QT 379 T 44 QTc 407 Conclusion SINUS RHYTHM NORMAL ECG UNCONFIRMED REPORT Electronically signed by : Beny Thayer MD 01/30/2022 16:25:04
--- NOTE | 2022-01-29 17:34 | XR_ITS ---
PROCEDURE INFORMATION: Exam: XR Chest Exam date and time: 01/29/22 05:33 PM Age: 46 years old Clinical indication: Dyspnea; Chest wall pain; Additional info: Cp x1 week TECHNIQUE: Imaging protocol: Radiologic exam of the chest. Views: 2 views. COMPARISON: CR XR CHEST PORTABLE 08/22/19 01:30 PM FINDINGS: Lungs: Unremarkable. No consolidation. Pleural spaces: Unremarkable. No pleural effusion. No pneumothorax. Heart/Mediastinum: Unremarkable. No cardiomegaly. Bones/joints: Unremarkable. IMPRESSION: No acute findings.
--- NOTE | 2022-01-29 17:44 | HMH.EDGENADL ---
Discharge Plan Disposition Patient Disposition: Home, Self-Care Condition: Fair Prescriptions Prescriptions: No Action amoxicillin 500 mg capsule 500 mg PO Q12H 10 Days Qty: 20 0RF promethazine-DM 120 ML syrup 5 ml PO Q6HP PRN (Reason: Cough) Qty: 240 0RF methylprednisolone 4 MG tablets,dose pack 4 mg PO DIRECTED 6 Days Qty: 21 0RF albuterol sulfate 8.5 GM HFA aerosol inhaler 2 puffs IH Q6HP PRN (Reason: Shortness Of Breath) 30 Days Qty: 1 5RF amoxicillin-pot clavulanate 1 EACH tablet 1 tab PO Q12H 10 Days Qty: 20 0RF Referrals Follow up/Referrals: Anil Zuñiga MD [Primary Care Provider] - See instructions Clinical Impressions Clinical Impression: Chest pain Instructions Patient Instructions: DI for Atypical Chest Pain Discharge ED Provider: Prashant Montes General Adult HPI <Prashant Montes MD - Last Filed: 01/29/22 20:00> General Chief complaint: Chest Pain Stated complaint: Pain under left breast X1 week ? pulled muscle Time Seen by Provider: 01/29/22 17:45 Mode of Arrival: Ambulatory Source of Information: Patient Limitations: No Limitations Description of Symptoms (Recalled from ER Triage Doc. by RN): Pt to ED from [facility] for further eval r/t CP x1 week. 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 Pt states that since then, she has had a constant pain that extends from under her left breast to the center of her chest. C/O increased pain with coughing/sneezing. States that it takes her a while to get up in the mornings because she is stiff and the pain is almost unbearable. History of Present Illness HPI narrative: Patient sent from the urgent treatment center. States that on Tuesday, 6 days ago, she developed pain in the center of her chest while at work. Since then she has had a pain that is under her left breast and up into her sternum. Pain is severe when she coughs or sneezes. Also hurts when she lays on either side. She is not short of breath, she has a mild pain with a deep breath. She has been taking Aleve for her symptoms. No recent cough or fever. States she feels like her left leg feels bigger than her right. No leg pain. No recent hospitalizations, surgeries, travel. She is not on oral contraceptive pills or hormone replacement therapy. She does not have any known cardiac or pulmonary conditions. She is a smoker. She does not have diabetes, hypertension, hyperlipidemia. Related Data Previous Rx's Medication Instructions Recorded amoxicillin 500 mg capsule 500 mg PO Q12H strep 10 days #20 04/14/21 caps albuterol sulfate 90 mcg/actuation 2 puffs IH Q6HP PRN Shortness Of 05/30/21 aerosol inhaler Breath 30 days #1 ea amoxicillin 875 mg-potassium 1 tab PO Q12H 10 days #20 tabs 05/30/21 clavulanate 125 mg tablet methylprednisolone 4 mg tablets in 4 mg PO DIRECTED 6 days #21 05/30/21 a dose pack packets promethazine-DM 6.25 mg-15 mg/5 mL 5 ml PO Q6HP PRN Cough #240 mL 05/30/21 oral syrup Allergies Allergy/AdvReac Type Severity Reaction Status Date / Time hydrocodone [HYDROCODONE] Allergy Mild NA-NAUSEA/V Verified 04/14/21 13:25 OMITING PFSH <Prashant Montes MD - Last Filed: 01/29/22 20:00> PFSH Medical History (Updated 01/29/22 @ 17:19 by Francisca Walker APRN) Cancer Migraine Surgical History (Updated 01/29/22 @ 17:03 by Isabel Hassan RN) History of appendectomy History of cholecystectomy History of hysterectomy History of repair of rotator cuff History of tonsillectomy Social History (Updated 01/29/22 @ 17:04 by Isabel Hassan RN) Smoking Status: Current every day smoker tobacco type: cigarettes packs per day: 1 second hand exposure: Yes alcohol intake: never current occupational status: employed Travel in the last 8 weeks: None household members: spouse housing: house caffeine: Yes (2 pots a day)
--- NOTE | 2022-01-29 17:45 | PC.NURSE ---
Pt back from Xray.
[2022-01-29 17:55] LABS: Chloride 107 mmol/L (98-107)
[2022-01-29 17:56] LABS: Potassium 3.7 mmoL/L (3.5-5.1); Sodium 144 mmol/L (136-145)
[2022-01-29 17:58] LABS: Blood Urea Nitrogen 9 mg/dl (7-17); Creatinine Clearance Estimated 166 mL/min (50-200); Estimated Glomerular Filt Rate 108 ml/min (>60); GFR (African American) 131 ML/MIN (>60)
[2022-01-29 17:59] LABS: Anion Gap 9.7 mEq/L (5-15); Calcium 9.2 mg/dl (8.4-10.2); Carbon Dioxide 31 mmol/L (22.0-30.0); Glucose 95 mg/dl (74-100)
[2022-01-29 18:14] LABS: Troponin I < 0.01 ng/ml (0.00-0.034)
[2022-01-29 18:18] LABS: Basophils # 0.2 K/mm3 (0-0.2); Basophils % 1.5 % (0.1-2.0); Eosinophils # 0.3 K/mm3 (0.0-0.4); Eosinophils % 2.8 % (0.1-12.0); Hemoglobin 14.8 g/dL (12.2-16.2); Lymphocytes # 2.9 K/mm3 (0.7-4.5); Lymphocytes % 26.2 % (10-50); Mean Corpuscular HGB Conc 30.8 g/dL (31.8-35.4); Mean Corpuscular Hemoglobin 29.5 pg (27.0-31.2); Mean Corpuscular Volume 95.8 fl (81-99); Mean Platelet Volume 7.8 fl (7.4-10.4); Monocytes # 0.5 K/mm3 (0.1-1.0); Monocytes % 4.3 % (1.7-9.3); Neutrophils # 7.1 K/mm3 (1.8-7.8); Neutrophils % 65.1 % (37.0-80.0); Platelet Count 291 K/mm3 (142-424); Red Blood Count 5.01 M/mm3 (4.20-5.40); Red Cell Distribution Width 13.4 % (11.5-17.5); White Blood Count 10.9 K/mm3 (4.8-10.8)
[2022-01-29 19:43] LABS: D-Dimer 0.73 ug/mL (0.0-0.5)
--- NOTE | 2022-01-29 19:51 | CT_ITS ---
PROCEDURE INFORMATION: Exam: CTA Chest With Contrast Exam date and time: 01/29/22 08:36 PM Age: 46 years old Clinical indication: Pain; Left-sided; Patient HX: D dimer elevated 0.73; Additional info: Chest pain, elev d-dimer TECHNIQUE: Imaging protocol: Computed tomographic angiography of the chest with contrast. 3D rendering (Not supervised by radiologist): MIP and/or 3D reconstructed images were created by the technologist. Radiation optimization: All CT scans at this facility use at least one of these dose optimization techniques: automated exposure control; mA and/or kV adjustment per patient size (includes targeted exams where dose is matched to clinical indication); or iterative reconstruction. Contrast material: ISOVUE 370; Contrast volume: 75 ml; Contrast route: INTRAVENOUS (IV); COMPARISON: CR Chest 01/29/22 05:33 PM FINDINGS: Pulmonary arteries: Normal. No pulmonary emboli. Aorta: Unremarkable. No aortic aneurysm. No aortic dissection. Lungs: Unremarkable. No consolidation. No masses. Pleural spaces: Unremarkable. No pneumothorax. No pleural effusion. Heart: Unremarkable. No cardiomegaly. No pericardial effusion. Lymph nodes: Unremarkable. No enlarged lymph nodes. Bones/joints: Unremarkable. No acute fracture. Soft tissues: Unremarkable. IMPRESSION: 1. No acute findings. 2. No CT evidence of pulmonary embolus.
--- NOTE | 2022-01-29 20:38 | PC.NURSE ---
pt gone to ct
[2022-01-29 22:20] LABS: Troponin I < 0.01 ng/ml (0.00-0.034)
== END 2022-01-29 21:52 | disposition home or self-care (01) ==
LOC: UTC 15:39 → ER 17:13
PROVIDERS: Emergency Provider Emergency Medicine; PCP Family Medicine
DX: R07.81 Pleurodynia (principal); R06.02 Shortness of breath; R05.9 Cough, unspecified; G43.909 Migraine, unspecified, not intractable, without status migrainosus; F17.210 Nicotine dependence, cigarettes, uncomplicated; Z79.51 Long term (current) use of inhaled steroids; Z79.52 Long term (current) use of systemic steroids; Z79.899 Other long term (current) drug therapy; Z85.9 Personal history of malignant neoplasm, unspecified
CPT/HCPCS: 71046; 71275; 80048; 84484; 85025; 85378; 93005; 96374; 99285; Q9967

== ENCOUNTER → 2022-03-16 14:06 | Outpatient (CLI) | payer BC, SELFPAY ==
--- NOTE | 2022-03-16 14:18 | XR_ITS ---
FINAL REPORT CLINICAL HISTORY: COVID OUT PATIENT, cough, smoker FINDINGS: A single portable view of the chest was obtained. The heart size and pulmonary vascularity are within normal limits. The mediastinum is within normal limits. There are mild left base opacities which may represent atelectasis or pneumonia. The bony thorax is intact. IMPRESSION: Mild left lung base atelectasis or pneumonia. Reviewed, Interpreted and Dictated by Aime Bryant III, MD Transcribed by Do Gordillo Authenticated and [facility]
[2022-03-16 15:46] LABS: Adenovirus,PCR Not Detected (NotDetected); Bordetella Pertussis Not Detected (NotDetected); Chlamydophila Pneumoniae, PCR Not Detected (NotDetected); Coronavirus 19, PCR Not Detected (NotDetected); Coronavirus 229E Not Detected (NotDetected); Coronavirus NL63 Not Detected (NotDetected); Coronavirus OC43 Not Detected (NotDetected); Coronovirus HKU1,PCR Not Detected (NotDetected); Human Metapneumovirus Not Detected (NotDetected); Influenza A, PCR Not Detected (NotDetected); Influenza AH1, 2009 Not Detected (NotDetected); Influenza AH1, PCR Not Detected (NotDetected); Influenza AH3,PCR Not Detected (NotDetected); Influenza B, PCR Not Detected (NotDetected); Mycoplasma Pneumoniae, PCR Not Detected (NotDetected); Parainfluenza 1, PCR Not Detected (NotDetected); Parainfluenza 2, PCR Not Detected (NotDetected); Parainfluenza 3, PCR Not Detected (NotDetected); Parainfluenza 4, PCR Not Detected (NotDetected); Rhinovirus/Enterovirus Not Detected (NotDetected)
[2022-03-16 16:11] LABS: Basophils # 0.2 K/mm3 (0-0.2); Basophils % 1.9 % (0.1-2.0); Eosinophils # 0.4 K/mm3 (0.0-0.4); Eosinophils % 4.6 % (0.1-12.0); Hematocrit 49.3 % (37.0-47.0); Hemoglobin 15.2 g/dL (12.2-16.2); Lymphocytes # 2.9 K/mm3 (0.7-4.5); Mean Corpuscular HGB Conc 30.7 g/dL (31.8-35.4); Mean Corpuscular Hemoglobin 28.8 pg (27.0-31.2); Mean Corpuscular Volume 93.7 fl (81-99); Monocytes # 0.6 K/mm3 (0.1-1.0); Monocytes % 7.2 % (1.7-9.3); Neutrophils # 4.4 K/mm3 (1.8-7.8); Neutrophils % 52.2 % (37.0-80.0); Platelet Count 298 K/mm3 (142-424); Red Blood Count 5.26 M/mm3 (4.20-5.40); Red Cell Distribution Width 13.4 % (11.5-17.5); White Blood Count 8.5 K/mm3 (4.8-10.8)
[2022-03-16 21:18] LABS: Respiratory Syncytial Virus Detected (NotDetected)
== END ==
PROVIDERS: PCP Family Medicine; Visit Provider Nurse Practitioner Family
DX: Z20.822 Contact with and (suspected) exposure to COVID-19 (principal); B97.4 Respiratory syncytial virus as the cause of diseases classified elsewhere
CPT/HCPCS: 36415; 71045; 85025; 87581; 87632; 87798; C9803; U0003; U0005

== ENCOUNTER 2022-06-01 16:03 | Emergency (ER) | payer BC, SELFPAY ==
[2022-06-01 17:06] VITALS: BP 130/79; PULSE 99; RESP 18; TEMP 37.1; O2SAT 98; BMI 29.7
--- NOTE | 2022-06-01 17:33 | EXP.UTC ---
Discharge Plan Disposition Patient Disposition: Home, Self-Care Condition: Good Prescriptions Prescriptions: New azithromycin [Zithromax Z-Musa] 250 mg tablet See Rx Instructions .ROUTE .COMPLEX 5 Days Qty: 6 0RF Rx Instructions: For 250 mg dose pack: take 500 mg today (day 1), then 250 mg for 4 days (days 2-5) prednisone [prednisone] 20 mg tablet 20 mg PO BID 5 Days Qty: 10 0RF benzonatate 100 mg capsule 100 mg PO TID PRN (Reason: cough) Qty: 30 0RF guaifenesin [Mucinex] 600 mg tablet extended release 12hr 600 mg PO BID PRN (Reason: cough) Qty: 20 0RF No Action albuterol sulfate 8.5 GM HFA aerosol inhaler 2 puffs IH Q6HP PRN (Reason: Shortness Of Breath) 30 Days Qty: 1 5RF Referrals Follow up/Referrals: Anil Zuñiga MD [Primary Care Provider] - See instructions Activity Restrictions/Add. Instructions Additional Instructions/Restrictions: Start antibiotic today. Be sure to complete entire prescription even if feeling better Monitor temp. Tylenol every 4 hours as needed and / or ibuprofen every 6 hours as needed ( As long as your primary care physician has told you that it ok to take both. For fever/aches/pains ER if no less than 101 despite Tylenol or Motrin Humidifier/vaporizer or hot steamy shower Inhaler every 4-6 hours as needed like we discussed. If unsure how to use it, ask pharmacist to demonstrate how. Should help open airways and improve cough, wheezing, and shortness of breath Mucinex for your cough and cough suppressant only at night. Be sure to drink lots of water. *Tessalon Perles will not cause drowsiness but use at bedtime to help stop cough so that you may get some rest. *Start steroid tomorrow. Helps with inflammation therefore, cough and wheezing. Follow directions on the package. Reviewed side effects. Patient reports taking them before. Follow up IMMEDIATELY for new or worsening of symptoms OR no noticeable improvement over the next 48-72 hours. 911 immediately for any life threatening symptoms such as chest pain or difficulty breathing Clinical Impressions Clinical Impression: Acute bronchitis Instructions Patient Instructions: Sinusitis, Acute Bronchitis, DI for Sinusitis Discharge ED Provider: Francisca Walker [facility] HPI General Stated complaint: Cough,Congestion,Fever Mode of Arrival: Ambulatory Source of Information: Patient Time Seen by Provider: 06/01/22 17:33 Description of Symptoms (Recalled from Triage Doc. by RN): cough, congestion. Had RSV a month ago and has not gotten better HEENT Symptoms (Recalled from RN notes): Yes Resp Symptoms (Recalled from RN notes): Yes Skin Symptoms (Recalled from RN notes): No MS Symptoms (Recalled from RN notes): No Functional Status (Recalled from RN notes): n/a History of Present Illness Provider Complaint: Patient states that she had RSV about a month ago and dont think she ever really kicked it States that she has been having cough, sinus congestion and pressure, and feels like it is trying to move into her chest States that today she was still not feeling well so she came in to get it checked out Related Data Previous Rx's Medication Instructions Recorded albuterol sulfate 90 mcg/actuation 2 puffs IH Q6HP PRN Shortness Of 05/30/21 aerosol inhaler Breath 30 days #1 ea azithromycin 250 mg tablet See Rx Instructions PO .COMPLEX 5 06/01/22 (Zithromax Z-Musa) days #6 tabs benzonatate 100 mg capsule 100 mg PO TID PRN cough #30 caps 06/01/22 guaifenesin 600 mg tablet, 600 mg PO BID PRN cough #20 tabs 06/01/22 extended release 12 hr (Mucinex) prednisone 20 mg tablet 20 mg PO BID 5 days #10 tabs 06/01/22 Allergies Allergy/AdvReac Type Severity Reaction Status Date / Time hydrocodone [HYDROCODONE] Allergy Mild NA-NAUSEA/V Verified 06/01/22 17:13 OMITING Worker's Comp Is this a Worker's Comp case?: No [facility] Disclaimer: The information c
[2022-06-01 18:47] VITALS: BP 130/79; PULSE 99; RESP 18; TEMP 37.1; O2SAT 98
== END 2022-06-01 18:40 | disposition home or self-care (01) ==
PROVIDERS: Emergency Provider Nurse Practitioner; PCP Family Medicine
DX: J20.9 Acute bronchitis, unspecified (principal)
CPT/HCPCS: 96372; 99212; 99213; G0463; J0696

== ENCOUNTER → 2022-08-18 15:39 | Outpatient (CLI) | payer BC, SELFPAY ==
--- NOTE | 2022-08-18 15:45 | XR_ITS ---
PROCEDURE INFORMATION: Exam: XR Left Foot Exam date and time: 08/18/2022 4:07 PM Age: 46 years old Clinical indication: Pain; Foot; Left; Additional info: Toe pain TECHNIQUE: Imaging protocol: Radiologic exam of the left foot. Views: 3 or more views. COMPARISON: No relevant prior studies available. FINDINGS: Bones/joints: Normal. Soft tissues: Normal. IMPRESSION: No acute findings.
--- NOTE | 2022-08-18 15:45 | XR_ITS ---
PROCEDURE INFORMATION: Exam: XR Right Foot Exam date and time: 08/18/2022 4:07 PM Age: 46 years old Clinical indication: Pain; Foot; Right; Additional info: Toe pain TECHNIQUE: Imaging protocol: Radiologic exam of the right foot. Views: 3 or more views. COMPARISON: No relevant prior studies available. FINDINGS: Bones/joints: Normal. Soft tissues: Normal. IMPRESSION: No acute findings.
== END ==
LOC: RAD 15:40
PROVIDERS: PCP Physician Assistant; Visit Provider Physician Assistant
DX: M79.674 Pain in right toe(s) (principal); M79.675 Pain in left toe(s)
CPT/HCPCS: 73630

== ENCOUNTER → 2022-08-23 14:14 | Outpatient (CLI) | payer BC, SELFPAY ==
--- NOTE | 2022-08-23 14:15 | US_ITS ---
FINAL REPORT CLINICAL HISTORY: PAD REYNAUDS DISEASE COLD DISCOLORED TOES FINDINGS: ANKLE-BRACHIAL PRESSURE INDICES Pressure indices are as follows: RIGHT LOWER EXTREMITY: Ankle-brachial pressure index: 1.02 Comments: Normal LEFT LOWER EXTREMITY: Ankle-brachial pressure index: 1.0 Comments: Normal IMPRESSION: No evidence of significant obstructive peripheral vascular disease of the lower extremities Reviewed, Interpreted and Dictated by Jne Martin MD Transcribed by Tatiana Jacob Authenticated and . [facility]
== END ==
LOC: RT 14:15
PROVIDERS: PCP Physician Assistant; Visit Provider Podiatrist
DX: I73.9 Peripheral vascular disease, unspecified (principal)
CPT/HCPCS: 93923

== ENCOUNTER → 2022-08-26 15:08 | Outpatient (CLI) | payer BC, SELFPAY ==
[2022-08-26 16:00] LABS: Erythrocyte Sedimentation Rate 6 mm/hr (0-20)
[2022-08-26 16:06] LABS: Basophils # 0.2 K/mm3 (0-0.2); Basophils % 1.5 % (0.1-2.0); Eosinophils # 0.5 K/mm3 (0.0-0.4); Hematocrit 49.1 % (37.0-47.0); Hemoglobin 15.6 g/dL (12.2-16.2); Lymphocytes # 2.6 K/mm3 (0.7-4.5); Lymphocytes % 26.5 % (10-50); Mean Corpuscular HGB Conc 31.7 g/dL (31.8-35.4); Mean Corpuscular Volume 94.8 fl (81-99); Monocytes # 0.4 K/mm3 (0.1-1.0); Monocytes % 4.4 % (1.7-9.3); Neutrophils # 6.1 K/mm3 (1.8-7.8); Neutrophils % 62.7 % (37.0-80.0); Platelet Count 297 K/mm3 (142-424); Red Blood Count 5.18 M/mm3 (4.20-5.40); Red Cell Distribution Width 12.8 % (11.5-17.5); White Blood Count 9.8 K/mm3 (4.8-10.8)
[2022-08-26 16:51] LABS: Alanine Aminotransferase 61 U/L (12-78); Albumin Level 4.6 g/dl (3.5-5.0); Alkaline Phosphatase 124 U/L (38-126); Anion Gap 13.4 mEq/L (5-15); Aspartate Amino Transferase 41 U/L (14-36); Bilirubin,Indirect 1.1 mg/dL (0.0-0.9); Bilirubin,Total 1.1 mg/dl (0.2-1.3); Bilirubin,Unconjugated 1.2 mg/dL (0.0-1.1); Blood Urea Nitrogen 16 mg/dl (7-17); Calcium 9.4 mg/dl (8.4-10.2); Carbon Dioxide 29 mmol/L (22.0-30.0); Chloride 102 mmol/L (98-107); Chol/HDL Ratio 3.8 (1-3.5); Cholesterol 163 mg/dl (140-200); Estimated Glomerular Filt Rate 90 ml/min (>60); GFR (African American) 109 ML/MIN (>60); Glucose 84 mg/dl (74-100); HDL Cholesterol 43 mg/dl (40-60); Potassium 4.4 mmoL/L (3.5-5.1); Sodium 140 mmol/L (136-145); Total Protein,Serum 7.1 g/dl (6.3-8.2); Triglycerides 142 mg/dl (30-150); VLDL Cholesterol 28 mg/dL (0-40)
[2022-08-26 17:02] LABS: C-Reactive Protein 5.6 mg/L (0-4); Direct LDL Cholesterol 92.82 mg/dL (100-129)
[2022-08-26 17:11] LABS: Free T4 (Free Thyroxine) 0.97 ng/dl (0.78-2.19)
[2022-08-26 17:26] LABS: Thyroid Stimulating Hormone 1.34 uIU/mL (0.465-4.68)
[2022-09-09 04:01] LABS: 1,25 Dihydroxy Vitamin D 26 pg/mL (.); 1,25-Dihydroxy, Vitamin D-2 <10 pg/mL (.); 1,25-Dihydroxy, Vitamin D-3 25 pg/mL (.)
== END ==
PROVIDERS: PCP Physician Assistant; Visit Provider Nurse Practitioner
DX: I73.00 Raynaud's syndrome without gangrene (principal); E78.5 Hyperlipidemia, unspecified; I99.8 Other disorder of circulatory system
CPT/HCPCS: 36415; 80048; 80061; 80076; 82652; 84439; 84443; 85025; 85651; 86140

== ENCOUNTER → 2022-09-10 07:41 | Outpatient (CLI) | payer BC, SELFPAY ==
--- NOTE | 2022-09-10 07:42 | CT_ITS ---
FINAL REPORT TECHNIQUE: Then section axial CT images of the chest were obtained with contrast. Three-D reformatted images were also obtained.This study was performed with techniques to keep radiation doses as low as reasonably achievable (ALARA). Individualized dose reduction techniques using automated exposure control or adjustment of mA and/or kV according to the patient''s size were employed. CLINICAL HISTORY: purple toes, poss blod clot, disorder of circulatory FINDINGS: There is no evidence of pulmonary embolism. There is no evidence of thoracic aortic aneurysm or dissection. There is no evidence of mediastinal or hilar mass or adenopathy. There is no evidence of pulmonary mass or suspicious nodule. There is mild atelectasis. Limited images of the upper abdomen demonstrate the celiac axis and proximal SMA to be normal. IMPRESSION: No evidence of pulmonary embolism. No mass or localized inflammatory process. Reviewed, Interpreted and Dictated by Aime Bryant III, MD Transcribed by Manjula Haq Authenticated and [facility]
--- NOTE | 2022-09-10 07:42 | CT_ITS ---
FINAL REPORT CLINICAL HISTORY: Purple toes, disorder of circulatory FINDINGS: Thin section axial CT images of the lower abdomen, pelvis and lower extremities were obtained with contrast. Multiplanar reformatted images were also obtained and reviewed. LOWER ABDOMEN AND PELVIS: There is no abdominal aortic aneurysm or dissection. The inferior mesenteric artery is patent. There is no significant stenosis of the right common iliac artery or external right iliac artery. There is no significant stenosis of the left common iliac artery or external left iliac artery. The internal iliac arteries are patent. RIGHT LOWER EXTREMITY: There is no significant stenosis of the right common femoral or superficial femoral arteries. The right deep femoral artery is patent. The right popliteal artery is patent. There is three-vessel runoff to the distal lower leg. LEFT LOWER EXTREMITY: There is no significant stenosis of the left common femoral or superficial femoral arteries. The left deep femoral artery is patent. The left popliteal artery is patent. There is three-vessel runoff to the distal lower leg. OTHER FINDINGS: There is a presumed cyst in left ovary measuring 33 mm. IMPRESSION: No significant vascular disease. Presumed left ovarian cyst. Reviewed, Interpreted and Dictated by Aime Bryant III, MD Transcribed by Sade Meneses Authenticated and [facility] [place] [place]
== END ==
LOC: RAD 07:42
PROVIDERS: PCP Physician Assistant; Visit Provider Nurse Practitioner
DX: I99.8 Other disorder of circulatory system (principal)
CPT/HCPCS: 71275; 75635; 93306; Q9967

== ENCOUNTER → 2023-05-24 23:15 | Outpatient (CLI) | payer BC, SELFPAY | LOC: LAB.DROPOF 23:16 | PROVIDERS: PCP Physician Assistant; Visit Provider Student in an Organized Health Care Education/Training Program | DX: R05.9 Cough, unspecified (principal); U07.1 COVID-19; J02.9 Acute pharyngitis, unspecified; R09.89 Other specified symptoms and signs involving the circulatory and respiratory systems | CPT/HCPCS: 87635 ==

== ENCOUNTER 2023-11-21 10:05 | Outpatient (CLI) | payer BC, SELFPAY ==
--- NOTE | 2023-11-21 10:29 | XR_ITS ---
FINAL REPORT CLINICAL HISTORY: SOB COMPARISON: 03/16/2022 FINDINGS: No acute pulmonary density is evident. There is no evidence of effusion or other pleural disease. The mediastinum has a normal appearance. The cardiac silhouette is unremarkable. IMPRESSION: Unremarkable chest exam. No change from prior. Reviewed, Interpreted and Dictated by Meseret Hays MD Transcribed by Grace Hernandes Authenticated and [facility] [place]
== END 2023-11-21 23:59 | disposition home or self-care (01) ==
LOC: RAD 10:07
PROVIDERS: PCP Nurse Practitioner Family; Visit Provider Nurse Practitioner Family
DX: R06.02 Shortness of breath (principal); R06.09 Other forms of dyspnea; J20.9 Acute bronchitis, unspecified
CPT/HCPCS: 71046

== ENCOUNTER 2023-11-30 14:56 | Outpatient (CLI) | payer BC, SELFPAY ==
[2023-11-30 15:45] VITALS: PULSE 76; PULSE 80
[2023-11-30] MEDS: ALBUTEROL 0.083% 2.5 MG/3 ML NEB IH (15:45)
== END 2023-11-30 23:59 | disposition home or self-care (01) ==
PROVIDERS: PCP Nurse Practitioner Family; Visit Provider Nurse Practitioner Family
DX: R06.02 Shortness of breath (principal)
CPT/HCPCS: 94060; 94640; 94726; 94729; J7613

== ENCOUNTER 2024-08-30 13:38 | Outpatient (CLI) | payer BC, SELFPAY ==
--- NOTE | 2024-08-30 13:41 | MM_ITS ---
PROCEDURE INFORMATION: Exam: MG Bilateral Screening 3D Mammography Exam date and time: 08/30/2024 1:44 PM Age: 48 years old Clinical indication: Screening examination TECHNIQUE: Imaging protocol: Bilateral Screening tomosynthesis and 2D mammography including computer-aided detection (CAD) when performed. COMPARISON: 1. MG TILA DIAG MAMMO W/CAD BILAT 11/07/2018 2:36 PM 2. MG MM DIG SCREENING MAMM BI W/CAD 08/30/2024 1:44 PM FINDINGS: MAMMOGRAPHY: Breast composition: There are scattered areas of fibroglandular density. Mass: No suspicious masses. Architectural distortion: None. Calcifications: No suspicious calcifications. Asymmetric density: None. Skin thickening: None. Axillary adenopathy: None. IMPRESSION: No mammographic evidence of malignancy. Annual screening is recommended unless otherwise clinically indicated. ASSESSMENT: BI-RADS Category 1: Negative.
== END 2024-08-30 23:59 | disposition home or self-care (01) ==
LOC: RAD 13:38
PROVIDERS: PCP Nurse Practitioner Family; Visit Provider Nurse Practitioner Family
DX: Z12.31 Encounter for screening mammogram for malignant neoplasm of breast (principal)
CPT/HCPCS: 77063; 77067